=== PATIENT | female | born 1995 | race Caucasian/White ===

== ENCOUNTER 2018-08-15 21:43 | Emergency (ER) | payer OTHER ==
[2018-08-15 23:15] LABS: ABS Basophils 0 10^3/ul (0-0.2); ABS Eosinophils 0.5 10^3/ul (0-0.6); ABS Lymphocytes 3.8 10^3/ul (1.0-4.8); ABS Monocytes 1.3 10^3/ul (0-0.8); ABS Nucleated RBC 0 10^3/ul; Eosinophil % 3.3 %; Hematocrit 30 % (35-47); Hemoglobin 9.7 g/dl (12.0-16.0); Lymphocyte % 24.4 %; Mean Corpuscular HGB Conc 33 g/dl (31-36); Mean Corpuscular Hemoglobin 26 pg (27-31); Mean Corpuscular Volume 79 fL (80-97); Mean Platelet Volume 7.7 fL (7.4-10.4); Nucleated Red Blood Cells % 0; Platelet Count 283 10^3/ul (150-450); Red Blood Count 3.72 10^6/ul (4.00-5.40); Red Cell Distribution Width 16 % (10.5-15); White Blood Count 15.7 10^3/ul (3.5-10.8)
[2018-08-15 23:32] LABS: EGFR Non-African American 169.8 (>60)
--- NOTE | 2018-08-15 23:34 | ED ---
GI/ HPI - HPI Summary HPI Summary: Patient is a 23 y/o F who states she is 31 weeks presenting to ED with complaints of spotting and pressure to lower pelvic/vaginal area onsetting this morning/early afternoon. Patient is . Bleeding is described as "pinkish". She denies abdominal cramping. Patient called Dr. Edward's office today and was told to come to his office for evaluation. Patient reported that she did not go there and instead went to ED. On triage, pain is rated 3/10, nothing is noted to aggravate/alleviate Sx. Home medications and allergies are reviewed. - History of Current Complaint Chief Complaint: EDOBProblems Time Seen by Provider: 08/15/18 22:35 Stated Complaint: 31 WKS PREG/BLEEDING Hx Obtained From: Patient Onset/Duration: Started Hours Ago, Still Present Timing: Constant, Lasting Hours Severity: Mild - 3/10 Current Severity: Mild - 3/10 Vaginal Bleeding Description: Bright Red Pain Intensity: 3 Location of Pain: Other - lower pelvic area/vaginal area Pain Characteristics: Pressure Associated Signs and Symptoms: Positive: Other: - pressure to lower pelvic/ vaginal area, no cramping Additional Signs & Symptoms: Positive: Vaginal Bleeding Aggravating Factor(s): Nothing Alleviating Factor(s): Nothing - Allergy/Home Medications Allergies/Adverse Reactions: Allergies Allergy/AdvReac Type Severity Reaction Status Date / Time Penicillins Allergy Anaphylatic Verified 08/15/18 21:48 Shock PMH/Surg Hx/FS Hx/Imm Hx Sensory History: Denies: Hx Legally Blind, Hx Deafness Opthamlomology History: Denies: Hx Legally Blind EENT History: Denies: Hx Deafness Infectious Disease History: No Infectious Disease History: Denies: Traveled Outside the [place] in Last 30 Days - Family History Known Family History: Negative: Blood Disorder - Social History Alcohol Use: None Substance Use Type: Reports: None Smoking Status (MU): Never Smoked Tobacco Review of Systems Negative: Fever - on vitals, temp is 98.4 F Positive: other - POSITIVE - VAGINAL BLEEDING, PRESSURE AT LOWER PELVIC/VAGINAL AREA; NEGATIVE - CRAMPING All Other Systems Reviewed And Are Negative: Yes Physical Exam - Summary Physical Exam Summary: VITAL SIGNS: Reviewed. GENERAL: Patient is a well-developed and nourished female who is lying comfortable in the stretcher. Patient is not in any acute respiratory distress. Fundal level of about 30 weeks. HEAD AND FACE: No signs of trauma. No ecchymosis, hematomas or skull depressions. No sinus tenderness. EYES: PERRLA, EOMI x 2, No injected conjunctiva, no nystagmus. EARS: Hearing grossly intact. Ear canals and tympanic membranes are within normal limits. MOUTH: Oropharynx within normal limits. NECK: Supple, trachea is midline, no adenopathy, no JVD, no carotid bruit, no c- spine tenderness, neck with full ROM. CHEST: Symmetric, no tenderness at palpation LUNGS: Clear to auscultation bilaterally. No wheezing or crackles. CVS: Regular rate and rhythm, S1 and S2 present, no murmurs or gallops appreciated. ABDOMEN: Soft, non-tender. No signs of distention. No rebound no guarding, and no masses palpated. Bowel sounds are normal. EXTREMITIES: FROM in all major joints, no edema, no cyanosis or clubbing. NEURO: Alert and oriented x 3. No acute neurological deficits. Speech is normal and follows commands. SKIN: Dry and warm Triage Information Reviewed: Yes Vital Signs On Initial Exam: Initial Vitals Temp Pulse Resp BP Pulse Ox 98.4 F 98 20 128/59 98 08/15/18 21:45 08/15/18 21:45 08/15/18 21:45 08/15/18 21:45 08/15/18 21:45 Vital Signs Reviewed: Yes Diagnostics - Vital Signs Vital Signs Temp Pulse Resp BP Pulse Ox 08/15/18 23:00 83 98 08/15/18 22:35 86 97 08/15/18 22:33 90 117/68 97 08/15/18 21:45 98.4 F 98 20 128/59 98 - Laboratory Lab Results: Lab Results 08/15/18 08/15/18 Range/Units 23:06 23:06 WBC 15.7 H (3.5-10.8) 10^3/ul RBC 3.72 L (4.00-5.40) 10^6/ul Hgb 9.7 L (12.0-16.0) g/dl Hct 30 L (35-47) % MCV 79 L (80-97) fL MCH 26 L (27-31) pg MCHC 33 (31-36) g/dl RDW 16 H (10.5-15) % Plt Count 283 (150-450) 10^3/ul MPV 7.7 (7.4-10.4) fL Neut % (Auto) 63.7 % Lymph % (Auto) 24.4 % [place] % (Auto) 8.3 % Eos % (Auto) 3.3 % Baso % (Auto) 0.3 % Absolute Neuts (auto) 10.0 H (1.5-7.7) 10^3/ul Absolute Lymphs (auto) 3.8 (1.0-4.8) 10^3/ul Absolute Monos (auto) 1.3 H (0-0.8) 10^3/ul Absolute Eos (auto) 0.5 (0-0.6) 10^3/ul Absolute Basos (auto) 0 (0-0.2) 10^3/ul Absolute Nucleated RBC 0 10^3/ul Nucleated RBC % 0 Blood Type O Positive Antibody Screen Pending Result Diagrams: 08/15/18 23:06 08/15/18 23:06 Lab Statement: Any lab studies that have been ordered have been reviewed, and results considered in the medical decision making process. - Ultrasound No standard instances Ultrasound Interpretation Completed By: Radiologist Summary of Ultrasound Findings: US IMPRESSION: Normal intrauterine with estimated gestational age of 34 weeks and 3. days. THIS REPORT WAS REVIEWED BY ED PHYSICIAN. Re-Evaluation - Re-Evaluation First Eval Re-Evaluation Time: 02:40 Comment: Results of labs and tests were discussed with patient. Patient will follow up with Dr. Edward, patient is agreeable with this plan. GIGU Course/Dx - Course Course Of Treatment: Patient is a 23 y/o F who states she is 31 weeks presenting to ED with complaints of spotting and pressure to lower pelvic/ vaginal area onsetting this morning/early afternoon. Patient is . Bleeding is described as "pinkish". She denies abdominal cramping. On physical exam, fundal level of 30 weeks. Abnormal labs were WBC 15.7, RBC 3.72, Hgb 9.7, Hct 30, MCV 79, MCH 26, RDW 16, absolute neuts 10, absolute monos 1.3, potassium 3.3 , carbon dioxide 21, creatinine 0.45, Alk Phos 327, total protein 6.3. UA showed 3+ blood, positive nitrate, trace leukocyte esterase, trace WBC, RBC 2+, present squamous epith cells, absent bacteria, negative glucose. Blood type O+, antibody screen negative. US IMPRESSION: Normal intrauterine with estimated gestational age of 34 weeks and 3. days. During ED course, patient received Klor Con Er Tab. Patient's case was discussed with Dr. Richards , Dr. Richards states that patient can be discharged to home and follow up with Dr. Edward in office. Results of labs and tests were discussed with patient. Patient will follow up with Dr. Edward, patient is agreeable with this plan. - Diagnoses Provider Diagnoses: 34 weeks gestation of - Physician Notifications Discussed Care Of Patient With: Catherine Richards Time Discussed With Above Provider: 02:04 Instructed by Provider To: Other - Patient's case was discussed with Dr. Richards , Dr. Richards states that patient can be discharged to home and follow up with Dr. Edward in office. Discharge - Sign-Out/Discharge Documenting (check all that apply): Patient Departure - discharge - Discharge Plan Condition: Stable Disposition: HOME Patient Education Materials: (ED) Referrals: Remy Edward MD [Medical Doctor] - 3 Days Additional Instructions: RETURN TO THE EMERGENCY DEPARTMENT FOR CHANGING OR WORSENING SYMPTOMS. FOLLOW UP WITH DR. EDWARD IN THREE DAYS ON SATURDAY. - Attestation Statements Document Initiated by Scribe: Yes Documenting Scribe: MÓNICA OLIVARES Provider For Whom Anderson is Documenting (Include Credential): BOGDAN GATES MD Scribe Attestation: IMÓNICA , scribed for BOGDAN GATES MD on 08/16/18 at 0338. Status of Scribe Document: Ready
[2018-08-15 23:56] LABS: Urine Appearance Clear; Urine Blood 3+ (Negative); Urine Color Straw; Urine Ketones Negative (Negative); Urine Protein Negative (Negative); Urine Red Blood Cell 2+(6-10/hpf) (Absent); Urine Specific Gravity 1.006 (1.010-1.030); Urine Urobilinogen Negative (Negative); Urine White Blood Cell Trace(0-5/hpf) (Absent)
[2018-08-16] MEDS ORDERED: Potassium Chlor TAB* 20 MEQ TAB.ER PO ONE (00:27)
[2018-08-16 02:42] VITALS: BP 114/71
== END 2018-08-16 02:41 | disposition home or self-care (01) ==
LOC: ED 21:43
DX: O46.93 Antepartum hemorrhage, unspecified, third trimester (principal); Z3A.31 31 weeks gestation of pregnancy; Z88.0 Allergy status to penicillin
CPT/HCPCS: 36415; 76815; 80053; 81003; 81015; 85025; 86850; 86900; 86901; 87086; 99282; A9270-GY

== ENCOUNTER 2018-08-23 00:35 | Inpatient (IN) | payer OTHER ==
--- NOTE | 2018-08-23 02:08 | HP ---
General Information - Reason for Visit Pt presents with ctx worsening since about 8pm. Pt had minimal care while living in [place]. Moved here and was first seen with ultrasound that dated at about 31 wks. LMP was off by several months. Pt has had four prior SVDs, all uncomplicated. Pt admits to marijuana use yesterday. Has used intermittently through . - General Information Maternal Age: 23 Grav: 5 Para: 4 SAB: 0 IEA: 0 Estimated Due Date: 09/24/18 Determined By: 3rd trimester US Gestational Age in Weeks/Days: 35+3 Maternal Blood Type and Rh: O Positive - Results this Serology/RPR Result: Non-Reactive Rubella Result: Immune HBsAg Result: Negative HIV Result: Negative GBS Culture Result: Negative Past Medical History Delivery History: Hx Uncomplicated Vaginal Delivery, See Records Pertinent Past Medical History: See Records - none Pertinent Past Surgical History: See Records - none - Antepartal Records Antepartal Records: Reviewed, Complicated by: - minimal care , marijuana use Review of Systems Constitutional: Uncomfortable CV Complaint: No Respiratory: Shortness of Breath: No Gastrointestinal: No Nausea/Vomiting Genitourinary: No Bleeding, No Leaking Fluid Musculoskeletal: Contractions Neurological: No Visual Changes Movement: Normal Exam Allergies/Adverse Reactions: Allergies Penicillins Allergy (Verified 08/23/18 00:24) Anaphylatic Shock T 97.7, BP 109/48, P90 Lab Values - Entire Visit: Laboratory Tests 08/23/18 01:03 Vag Amniotic Fld Detect Positive - Measurements Height: 5 ft Weight: 187 lb Weight in lbs: [phone] Body Mass Index (BMI): 36.5 Pre- Weight: 150 lb Weight Gained This : 37 lbs and 0 ozs - Exam Breast: Breast Exam Deferred Heart: Normal Rhythm/Heart Sounds Lungs: Clear Bilaterally Rectal: Rectal Exam Deferred - Abdominal Exam Abdomen Exam: Non-Tender, Fundal Height Consistent with Dates - Ultrasound/Biophysical Profile Ultrasound Status: Not Done Targeted Exam Findings Estimated Weight: 6 lbs Cervical Exam: 7cm Effacement: 80% Station: -1 Presenting Part: Vertex Membrane Status: Bulging EFM Findings - External Monitor Findings Baseline Heart Rate: 140 External Monitor Findings: Accelerations Present, No Pattern of Variable or Late Decelerations, Variability Moderate, Baseline Stable Contractions: Regular, Strong Contraction Frequency: Q2-3 min Assessment/Plan - Assessment 23yo at about 35 wks (but with poor dating) in active labor. Reassuring status. GBS negative. - Obstetrical Risk Factors Obstetrical Risk Factors: Substance Abuse Risk Factors Comment: marijuana - Plan Plan: Admit - Anticipate Vaginal Delivery - Date/Time of Admission Date of Admission: 08/23/18 Time of Admission: 01:30
[2018-08-23] MEDS ORDERED: Witch Hazel PAD* JAR TOPICAL PRN (02:43)
[2018-08-23] MEDS ORDERED: Dibucaine 1% 28.35 GM TUBE PR PRN (02:43)
[2018-08-23] MEDS ORDERED: OXYTOCIN* 10 UNITS/ML 1 ML VIAL IM ONE (02:43)
--- NOTE | 2018-08-23 02:51 | PROCNOTE ---
[facility] OB: Delivery Note - Nursery Level of Nursery: Regular/Bedside - Perineum Perineal Injury: None/Intact Perineal Repair: None - Events Delivery Events of Note Comment: Pt presented with poor care, dating by 31 wk sono. Cervix 7cm on presentation. At 8cm, AROM with clear fluid. Pt progressed quickly to C/C. She pushed with two contractions to deliver head in a controlled fashion. Shoulders and body quickly followed. IM pitocin given. Cord blood collected. Intact placenta delivered spontaneously. Perineum intact.
[2018-08-23] MEDS: Ibuprofen TAB* 600 MG PO PRN ×3 (03:46→20:12)
[2018-08-23] MEDS: Acetaminophen TAB* 325 MG PO PRN ×2 (05:24→15:38)
[2018-08-23] MEDS ORDERED: Simethicone TAB* 80 MG TAB.CHEW PO SCH (08:30)
[2018-08-23] MEDS: Docusate CAP* 100 MG PO SCH ×2 (15:38→20:12)
[2018-08-24] MEDS: Ibuprofen TAB* 600 MG PO PRN ×4 (06:20→23:48)
[2018-08-24 06:26] LABS: ABS Basophils 0.1 10^3/ul (0-0.2); ABS Eosinophils 0.5 10^3/ul (0-0.6); ABS Lymphocytes 4.3 10^3/ul (1.0-4.8); ABS Monocytes 0.8 10^3/ul (0-0.8); ABS Neutrophils 5.8 10^3/ul (1.5-7.7); ABS Nucleated RBC 0 10^3/ul; Eosinophil % 4.3 %; Hematocrit 30 % (35-47); Hemoglobin 9.9 g/dl (12.0-16.0); Lymphocyte % 37.6 %; Mean Corpuscular HGB Conc 33 g/dl (31-36); Mean Corpuscular Hemoglobin 26 pg (27-31); Mean Corpuscular Volume 80 fL (80-97); Mean Platelet Volume 7.4 fL (7.4-10.4); Nucleated Red Blood Cells % 0.1; Platelet Count 304 10^3/ul (150-450); Red Cell Distribution Width 16 % (10.5-15); White Blood Count 11.5 10^3/ul (3.5-10.8)
[2018-08-24] MEDS: Ferrous Gluconate TAB* 324 MG TAB PO SCH ×2 (08:39→19:23)
[2018-08-24] MEDS: Docusate CAP* 100 MG PO SCH ×3 (08:39→19:23)
[2018-08-25] MEDS: Acetaminophen TAB* 325 MG PO PRN (04:16)
[2018-08-25 07:25] VITALS: BP 110/61
[2018-08-25] MEDS: Ibuprofen TAB* 600 MG PO PRN (08:59)
[2018-08-25] MEDS: Ferrous Gluconate TAB* 324 MG TAB PO SCH (09:00)
[2018-08-25] MEDS: Docusate CAP* 100 MG PO SCH (09:00)
[2018-08-25] MEDS ORDERED: Tetan/Diph/Pertus SYR(Tdap)* 0.5 ML SYR(BOOSTRIX) use SYR IM ONE (11:06)
== END 2018-08-25 15:30 | disposition home or self-care (01) | DRG 560 ==
LOC: MCHOBOUT 00:35 → MCHOB 01:40
PROVIDERS: ADMIT Obstetrics & Gynecology; ATTEND Obstetrics & Gynecology
PROC: 10E0XZZ Delivery of Products of Conception, External Approach (ICD-10-PCS; principal; 2018-08-23)
PROC: 10907ZC Drainage of Amniotic Fluid, Therapeutic from Products of Conception, Via Natural or Artificial Opening (ICD-10-PCS; 2018-08-23)
DX: O60.14X0 Preterm labor third trimester with preterm delivery third trimester, not applicable or unspecified (principal); O99.324 Drug use complicating childbirth; Z37.0 Single live birth; F12.10 Cannabis abuse, uncomplicated; Z3A.35 35 weeks gestation of pregnancy; O90.81 Anemia of the puerperium; D64.9 Anemia, unspecified
CPT/HCPCS: 36415; 80307; 84112; 85025; 99282; A9270-GY; J2590